=== PATIENT | female | born 1985 | race Two or more races ===

== ENCOUNTER 2024-01-29 23:30 | Emergency (ER) | payer MEDICAID, OTHER ==
[~2024-01-29] VITALS: Ht 170.2 cm; Wt 72.0 kg
[2024-01-30] VITALS: PULSE 111; RESP 16; O2SAT 99
[2024-01-30 00:09] LABS: Urine Bacteria None Seen /hpf (None Seen)
--- NOTE | 2024-01-30 00:13 | ED.PDOC ---
Psychiatric HPI Comments 38-year-old female who came to ER via EMS for overdose. Patient has history of anxiety and depression but is not taking any medications for it. Patient states she feels so stress recently, that she decided to harm herself by taking ibuprofen 200 mg x6, Advil p.m.x2, melatonin gummies 5 mg x2, earlier with a bot tle of wine in an attempt to harm herself. Denies being homicidal. Denies any hallucinations. Chief Complaint: Overdose Time Seen by MD: 00:12 Reviewed Notes: Photography Editor Notes Information Source: Patient Mode of Arrival: Ambulatory Severity: Unable to Care for Self, Unable to Control Self Severity of Pain: Moderate Severity of Mental Status: Moderate Severity of Symptoms: Moderate Timing: Hours Duration: Intermittent Presents with: Depression, Anxiety Attempt: Ingestion Ingestion: Intentional, Multiple, Ingestion Observed, Drug(s) Ingested (Ibuprofen, Advil, melatonin), ETOH Circumstance: Medical Clearance Current substance abuse: ETOH Stressors: Relationships Associated signs and symptoms: Depression, Hopeless, Anxiety, ETOH Past Medical History PAST MEDICAL HISTORY: Anxiety, Depression Surgical History: Denies all surgeries 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: Denies all 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 Hx Family History Family History: Reviewed,noncontributory to illness Social History Smoker: Non-Smoker Alcohol: Occasionally Drugs: Denies Drug Use Lives In: Home Constitutional: denies: chills, diaphoresis, fatigue, fever, malaise, sweats, weakness, others EENTM: denies: blurred vision, double vision, ear bleeding, ear discharge, ear drainage, ear pain, ear ringing, eye pain, eye redness, hearing loss, mouth pain, mouth swelling, nasal discharge, nose bleeding, nose congestion, nose pain, photophobia, tearing, throat pain, throat swelling, voice changes, others Respiratory: denies: cough, hemoptysis, orthopnea, SOB at rest, shortness of breath, SOB with excertion, stridor, wheezing, others Cardiovascular: denies: chest pain, dizzy spells, diaphoresis, Dyspnea on exertion, edema, irregular heart beat, left arm pain, lightheadedness, palpitations, PND, syncope, others Gastrointestinal: denies: abdomen distended, abdominal pain, blood streaked bowels, constipated, diarrhea, dysphagia, difficulty swallowing, hematemesis, melena, nausea, poor appetite, poor fluid intake, rectal bleeding, rectal pain, vomiting, others Genitourinary: denies: abnormal vagina bleeding, burning, dyspareunia, dysuria, flank pain, frequency, hematuria, incontinence, pain, , vagina discharge, urgency, others Neurological: denies: dizziness, fainting, headache, left sided numbness, left sided weakness, numbness, paresthesia, pre-existing deficit, right sided numbness, right sided weakness, seizure, speech problems, tingling, tremors, weakness, others Musculoskeletal: denies: back pain, gout, joint pain, joint swelling, muscle pain, muscle stiffness, neck pain, others Integumetry: denies: bruises, change in color, change in hair/nails, dryness, laceration, lesions, lumps, rash, wounds, others Allergic/Immunocompromised: denies: Difficulty Healing, Frequent Infections, Hives, Itching, others Hematologic/Lymphatic: denies: anemia, blood clots, easy bleeding, easy bruising, swollen glands, others Endocrine: denies: excessive hunger, excessive sweating, excessive thirst, excessive urination, flushing, intolerance to cold, intolerance to heat, unexplained weight gain, unexplained weight loss, others Psychiatric: reports: anxiety, depression, suicidal; denies: bipolar disorder, hopeless, panic disorder, schizophrenia, sleepless, others Physical Exam General Appearance: No Apparent Distress, Normal HEENT: Normal ENT Inspection, Pharynx Normal, TMs Normal Neck: Full Range of Motion, Non-Tender, Normal, Normal Inspection Respiratory: Chest Non-Tender, Lungs Clear, No Accessory Muscle Use, No Respiratory Distress, Normal Breath Sounds Cardiovascular: No Edema, No JVD, No Murmur, No Gallop, Normal Peripheral Pulses, Regular Rate/Rhythm Breast Exam: Deferred Gastrointestinal: No Organomegaly, Non Tender, No Pulsatile Mass, Normal Bowel Sounds, Soft Genitalia: Deferred Pelvic: Deferred Rectal: Deferred Extremities: No calf tenderness, Normal capillary refill, Normal inspection, Normal range of motion, Non-tender, No pedal edema Musculoskeletal : Apperance: Normal Neurologic: Alert, phlebotomist prn II-XII nml as Tested, No Motor Deficits, Normal Affect, Normal Mood, No Sensory Deficits Cerebellar Function: Normal Reflexes: Normal Skin: Dry, Normal Color, Warm Lymphatic: No Adenopathy Was a procedure done? Was a procedure done?: No Psych Differential Dx OD Differential Dx: Alcohol Abuse, Anxiety, Depression, Drug Overdose, Intentional, Personality Disorder, Schizophrenia, Suicidal Attempt X-Ray, Labs, Meds, VS Vital Signs Date Time Temp Pulse Resp B/P (MAP) Pulse Ox O2 Delivery O2 Flow Rate FiO2 01/30/24 04:00 89 15 94/55 (68) 95 01/30/24 03:00 91 15 106/71 (83) 95 01/30/24 02:00 99 9 100/73 (82) 95 01/30/24 01:00 97 17 109/79 (89) 96 01/30/24 00:00 111 16 111/71 (84) 99 01/30/24 00:00 111 16 99 Room Air* 0 21 01/29/24 23:58 112 111/71 (84) 01/29/24 23:41 98.4 134 18 148/87 (107) 100 01/29/24 23:39 124 Lab Test 01/30/24 00:26 01/30/24 00:12 01/30/24 00:03 Range/Units POC Glucose 154 H 70-106 mg/dl White Blood Count 5.2 4.4-10.8 10^3/uL Red Blood Count 4.08 4.0-5.20 10^6/uL Hemoglobin 13.6 12.2-16.2 g/dL Hematocrit 40.7 36.0-46.0 % Mean Corpuscular Volume 99.7 80.0-100.0 fL Mean Corpuscular Hemoglobin 33.4 H 28.0-32.0 pg Mean Corpuscular Hemoglobin Concent 33.5 32.0-36.0 g/dL Red Cell Distribution Width 14.2 11.8-14.3 % Platelet Count 339 140-450 10^3/uL Mean Platelet Volume 8.7 6.9-10.8 fL Neutrophils (%) (Auto) 70.0 37.0-80.0 % Lymphocytes (%) (Auto) 25.2 10.0-50.0 % Monocytes (%) (Auto) 4.0 0.0-12.0 % Eosinophils (%) (Auto) 0.4 0.0-7.0 % Basophils (%) (Auto) 0.4 0.0-2.0 % Neutrophils # (Auto) 3.6 1.6-8.6 10 ^3/uL Lymphocytes # (Auto) 1.3 0.4-5.4 10 ^3/uL Monocytes # (Auto) 0.2 0-1.3 10 ^3/uL Eosinophils # (Auto) 0 0-0.8 10 ^3/uL Basophils # (Auto) 0 0-0.2 10 ^3/uL Nucleated Red Blood Cells 0.2 % Sodium Level 141 136-145 mmol/L Potassium Level 2.7 L 3.5-5.1 mmol/L Chloride Level 109 H 98-107 mmol/L Carbon Dioxide Level 18 L 20-31 mmol/L Anion Gap 14 5-15 Blood Urea Nitrogen < 5 L 9-23 mg/dL Creatinine 0.84 0.550-1.02 mg/dL Glomerular Filtration Rate Calc 92 >90 mL/min BUN/Creatinine Ratio 6.0 L 10.0-20.0 Serum Glucose 179 H 74-106 mg/dL Calcium Level 9.9 8.7-10.4 mg/dL Salicylates Level < 3.0 -30 mg/dL Acetaminophen Level 4.0 L 10.0-20.0 UG/ML Plasma/Serum Blood Alcohol 246.6 H <10 mg/dL Urine Color Colorless Yellow Urine Clarity Clear Clear Urine pH 5.5 5.0-9.0 Urine Specific [place] 1.003 1.001-1.035 Urine Protein Negative Negative Urine Ketones Negative Negative Urine Blood Negative Negative /uL Urine Nitrite Negative Negative Urine Bilirubin Negative Negative Urine Urobilinogen Normal Negative mg/dL Urine Leukocyte Esterase Negative Negative /uL Urine RBC 1 0 - 4 /hpf Urine WBC 1 0 - 5 /hpf Urine Squamous Epithelial Cells Few <5 /hpf Urine Bacteria None seen None Seen /hpf Urine Glucose 3+ H Normal mg/dL Urine Test Negative Negative Urine Opiates Screen Neg NEGATIVE Urine Fentanyl Screen Neg NEGATIVE Urine Barbiturates Screen Neg NEGATIVE Urine Phencyclidine Screen Neg NEGATIVE Urine Amphetamines Screen Neg NEGATIVE Urine Benzodiazepines Screen Neg NEGATIVE Urine Cocaine Screen Neg NEGATIVE Urine Cannabinoids Screen Neg NEGATIVE Current Medications Medications (Trade) Dose Ordered Sig/Dot Route Start Time Stop Time Status Last Admin Potassium Bicarbonate (Klor-Con/Ef) 50 meq ONCE ONCE PO 01/30/24 02:00 01/30/24 02:02 DC 01/30/24 02:41 Time of 1ST Reevaluation: 00:07 Reevaluation 1ST: Unchanged Patient Education/Counseling: Diagnosis, Treatment Family Education/Counseling: No Family Present Departure 1 Departure Time of Disposition: 05:41 (Patient presenting with suicide ideation. Patient is medically cleared. Patient pending psychiatric evaluation) Impression: Primary Impression: Suicidal ideation Additional Impression: Alcohol intoxication Qualified Codes: F10.920 - Alcohol use, unspecified with intoxication, uncomplicated Disposition: 30 STILL A PATIENT Condition: Serious Critical Care Note Critical Care Time?: Yes Critical care comment: Suicidal ideation Authorized and Performed by: Del Glass MD Total critical care time: Approximately 44 minutes Due to a high probability of clinically significant, life threatening deterioration, the patient required my highest level of preparedness to intervene emergently and I personally spent this critical care time directly and personally managing the patient. This critical care time included obtaining a history; examining the patient; pulse oximetry; ordering and review of studies; arranging urgent treatment with development of a management plan; evaluation of patient's response to treatment; frequent reassessment; and, discussions with other providers. This critical care time was performed to assess and manage the high probability of imminent, life-threatening deterioration that could result in multi-organ failure. It was exclusive of separately billable procedures and treating other patients and teaching time. Please see my other sections and the rest of the note for further information on patient assessment and treatment. Stability Stability form required: No Heart Score Heart Score: Heart Score Response (Comments) Value History N/A 0 EKG N/A 0 Age N/A 0 Risk Factors N/A 0 Troponin N/A 0 Total 0 I personally scribed for DEL GLASS MD ([email or web address]) on 01/30/24 at 00:13. Electronically submitted by Dc Sprague ([email or web address]). DEL GLASS MD Jan 30, 2024 00:13
[2024-01-30 00:19] LABS: Urine Blood Negative /uL (Negative); Urine Clarity Clear (Clear); Urine Color Colorless (Yellow); Urine Protein, UAD Negative (Negative); Urine Specific Gravity 1.003 (1.001-1.035); Urine Urobilinogen Normal (Negative); Urine WBC 1 /hpf (0 - 5); Urine pH 5.5 (5.0-9.0)
[2024-01-30 00:32] LABS: Basophils # (auto) 0 10 ^3/uL (0-0.2); Basophils % (auto) 0.4 % (0.0-2.0); Eosinophils # (auto) 0 10 ^3/uL (0-0.8); Eosinophils % (auto) 0.4 % (0.0-7.0); Hematocrit 40.7 % (36.0-46.0); Hemoglobin 13.6 g/dL (12.2-16.2); Lymphocytes # (auto) 1.3 10 ^3/uL (0.4-5.4); Lymphocytes % (auto) 25.2 % (10.0-50.0); Mean Corpuscular Hemoglobin 33.4 pg (28.0-32.0); Mean Corpuscular Hgb Conc. 33.5 g/dL (32.0-36.0); Mean Corpuscular Volume 99.7 fL (80.0-100.0); Monocytes # (auto) 0.2 10 ^3/uL (0-1.3); Neutrophils # (auto) 3.6 10 ^3/uL (1.6-8.6); Nucleated Red Blood Cells % 0.2 %; Platelet Count (auto) 339 10^3/uL (140-450); Red Blood Cells 4.08 10^6/uL (4.0-5.20); Red Cell Distribution Width 14.2 % (11.8-14.3); White Blood Cell 5.2 10^3/uL (4.4-10.8)
[2024-01-30 00:34] LABS: Chloride 109 mmol/L (98-107); Potassium 2.7 mmol/L (3.5-5.1); Sodium 141 mmol/L (136-145)
[2024-01-30 00:35] LABS: Anion Gap 14 (5-15); Calcium 9.9 mg/dL (8.7-10.4); Carbon Dioxide 18 mmol/L (20-31)
[2024-01-30 00:40] LABS: Glucose 179 mg/dL (74-106)
[2024-01-30 00:44] LABS: Blood Urea Nitrogen < 5 mg/dL (9-23); Salicylate < 3.0 mg/dL (-30)
[2024-01-30 01:34] LABS: Amphetamine Screen, Urine Neg (NEGATIVE); Barbiturate Scree,Urine Neg (NEGATIVE); Benzodiazephine Screen, Urine Neg (NEGATIVE); Cocaine Screen, Urine Neg (NEGATIVE); Opiate Scree,Urine Neg (NEGATIVE)
[2024-01-30 01:35] LABS: Phencyclidine Screen, Urine Neg (NEGATIVE)
[2024-01-30 01:35] LABS: Blood Alcohol 246.6 mg/dL (<10)
[2024-01-30 01:48] LABS: Cannabinoid Screen, Urine Neg (NEGATIVE)
[2024-01-30] MEDS: POTASSIUM EFFERVESENT TAB 25 MEQ PO ONE (02:41)
[2024-01-30] MEDS: SODIUM CHLORIDE 0.9% 1,000 ML IVB ONE (09:18)
[2024-01-30 10:14] VITALS: BP 122/70; PULSE 70; RESP 16; O2SAT 97
[2024-01-30 11:00] LABS: Alanine Aminotransferase 17 U/L (7-40); Albumin 4.2 g/dL (3.2-4.8); Alkaline Phosphatase 49 U/L (46-116); Anion Gap 7 (5-15); Aspartate Aminotransferase 14 U/L (13-40); BUN/Creatinine Ratio 7.5 (10.0-20.0); Bilirubin, Total 0.5 mg/dL (0.2-1.0); Blood Urea Nitrogen 6 mg/dL (9-23); Calcium 9.4 mg/dL (8.7-10.4); Carbon Dioxide 26 mmol/L (20-31); Chloride 110 mmol/L (98-107); Glucose 94 mg/dL (74-106); Potassium 4.4 mmol/L (3.5-5.1); Sodium 143 mmol/L (136-145); Total Protein 6.9 g/dL (5.7-8.2)
--- NOTE | 2024-01-30 11:02 | DVHINCON2 ---
Date of Service if different f: Jan 30, 2024 Time of Service: 10:06 Consultation ([facility]) Consulting Physician: PEPE CARDENAS MD Progress: Better Labs Laboratory Tests Test 01/30/24 00:03 01/30/24 00:12 01/30/24 00:26 Urine Color Colorless (Yellow) Urine Clarity Clear (Clear) Urine pH 5.5 (5.0-9.0) Urine Specific [place] 1.003 (1.001-1.035) Urine Protein Negative (Negative) Urine Ketones Negative (Negative) Urine Blood Negative /uL (Negative) Urine Nitrite Negative (Negative) Urine Bilirubin Negative (Negative) Urine Urobilinogen Normal mg/dL (Negative) Urine Leukocyte Esterase Negative /uL (Negative) Urine RBC 1 /hpf (0 - 4) Urine WBC 1 /hpf (0 - 5) Urine Squamous Epithelial Cells Few /hpf (<5) Urine Bacteria None seen /hpf (None Seen) Urine Glucose 3+ mg/dL (Normal) Urine Test Negative (Negative) Urine Opiates Screen Neg (NEGATIVE) Urine Fentanyl Screen Neg (NEGATIVE) Urine Barbiturates Screen Neg (NEGATIVE) Urine Phencyclidine Screen Neg (NEGATIVE) Urine Amphetamines Screen Neg (NEGATIVE) Urine Benzodiazepines Screen Neg (NEGATIVE) Urine Cocaine Screen Neg (NEGATIVE) Urine Cannabinoids Screen Neg (NEGATIVE) White Blood Count 5.2 10^3/uL (4.4-10.8) Red Blood Count 4.08 10^6/uL (4.0-5.20) Hemoglobin 13.6 g/dL (12.2-16.2) Hematocrit 40.7 % (36.0-46.0) Mean Corpuscular Volume 99.7 fL (80.0-100.0) Mean Corpuscular Hemoglobin 33.4 pg (28.0-32.0) Mean Corpuscular Hemoglobin Concent 33.5 g/dL (32.0-36.0) Red Cell Distribution Width 14.2 % (11.8-14.3) Platelet Count 339 10^3/uL (140-450) Mean Platelet Volume 8.7 fL (6.9-10.8) Neutrophils (%) (Auto) 70.0 % (37.0-80.0) Lymphocytes (%) (Auto) 25.2 % (10.0-50.0) Monocytes (%) (Auto) 4.0 % (0.0-12.0) Eosinophils (%) (Auto) 0.4 % (0.0-7.0) Basophils (%) (Auto) 0.4 % (0.0-2.0) Neutrophils # (Auto) 3.6 10 ^3/uL (1.6-8.6) Lymphocytes # (Auto) 1.3 10 ^3/uL (0.4-5.4) Monocytes # (Auto) 0.2 10 ^3/uL (0-1.3) Eosinophils # (Auto) 0 10 ^3/uL (0-0.8) Basophils # (Auto) 0 10 ^3/uL (0-0.2) Nucleated Red Blood Cells 0.2 % Sodium Level 141 mmol/L (136-145) Potassium Level 2.7 mmol/L (3.5-5.1) Chloride Level 109 mmol/L (98-107) Carbon Dioxide Level 18 mmol/L (20-31) Anion Gap 14 (5-15) Blood Urea Nitrogen < 5 mg/dL (9-23) Creatinine 0.84 mg/dL (0.550-1.02) Glomerular Filtration Rate Calc 92 mL/min (>90) BUN/Creatinine Ratio 6.0 (10.0-20.0) Serum Glucose 179 mg/dL (74-106) Calcium Level 9.9 mg/dL (8.7-10.4) Salicylates Level < 3.0 mg/dL (-30) Acetaminophen Level 4.0 UG/ML (10.0-20.0) Plasma/Serum Blood Alcohol 246.6 mg/dL (<10) Bedside Glucose 154 mg/dl (70-106) Appetite: Good Side effects of medications: No Appearance: Stated age Behavioral: Cooperative Eye contact: Appropriate Speech: WNL, Slowed Affect: Appropriate Mood: Depressed Thought processes: Linear/Goal-directed Thought content: WNL Suicidal ideations: Absent Homicidal ideations: Absent Orientation: Person, Place, Time, Situation Memory intact: Short term Intellect: Average Abstractability: WNL Concentration: Adequate Attention: Adequate Judgement: Poor Insight: Limited Vitals Vital Signs Date Time Temp Pulse Resp B/P (MAP) Pulse Ox O2 Delivery O2 Flow Rate FiO2 01/30/24 08:14 98 16 110/65 (80) 95 01/30/24 00:00 Room Air* 0 21 01/29/24 23:41 98.4 Current medications Denies current psych meds. Treatment plan discussed: With staff Medication adjusted: No Labs ordered: No Psychotherapy provided: Yes Type: Involuntary Diagnosis: [place] I : F33.2, F10.20 [place] II : Borderline PD, predominantly codependent variety. [place] III : [place] IV : [place] V : Plan : Initiate 5150 and have pt admitted to inpatient psychiatric hospital for acute stabilization per standards of care and b/c the crisis situation at home has not changed. Pt remains a high risk for re-attempting suicide if she returns home or is discharged without inpatient psych treatment. History of Present Illness Reason for Consult : Overdose on meds in the context of alcohol use. Pt says she was having an issue with her daughter and the pt took an overdose of OTC pills. HPI : Pt says that she recently moved back in with the daughter's father and she and her daughter have not been getting along. The daughter wanted to go meet her boyfriend and was going to run away. Pt was trying to stop her, but she ran away anyway. Pt tried to find her, called the police who found her and brought her home. Pt drank a bottle of wine during the time she was waiting and also took a number of pills to overdose. Pt admits that in the moment she was suicidal and wanted to . Pt says she is in a relationship with a controlling narcissistic partner who doesn't allow her to use the internet features on her phone even. Pt has little access to psychiatric support and therapy and self medicates with alcohol when she feels afraid and angry. Pt has been diagnosed with depression, alcohol use disorder, was planning to start going to AA meetings. And Codependency. Past Psychiatric History : 2 IP stays, last was in July this year. Past Medical History : Denies. Social History : Lives with a partner and 2 daughters. 2 other daughters live with their father who is a different person. Assessment/Diagnosis/Plan Reviewed: Consults, Labs, Medications YUMIKO GAN MD Jan 30, 2024 11:02
[2024-01-30] MEDS ORDERED: PROP60CA34 PO (12:17)
--- NOTE | 2024-02-01 10:47 | ECG ---
[facility] Test Date: 2024-01-29 Test Time: 23:39:55 Pat Name: CHICO BLISS Department: ER Room: Gender: F Strain Technician: LAQUITA : 1985 Requested By: DEL SANCHEZ Order Number: [id number] Reading MD: Karl Castellano Measurements Intervals [place] Rate: 124 P: 72 VA: 176 QRS: 40 QRSD: 80 T: 268 QT: 339 QTc: 487 Interpretive Statements Sinus tachycardia Nonspecific T abnormalities, diffuse leads Borderline prolonged QT interval Electronically Signed On 02-04-2024 10:11:15 PST by Karl Castellano Please click the below link to view image of tracing.
== END 2024-01-30 12:41 | disposition home or self-care (01) ==
LOC: ER 23:30 → EDBD 23:30 → ER 01-30 12:41
DX: T39.312A Poisoning by propionic acid derivatives, intentional self-harm, initial encounter (principal); F10.129 Alcohol abuse with intoxication, unspecified; R45.851 Suicidal ideations; F41.9 Anxiety disorder, unspecified; F32.A Depression, unspecified; F60.3 Borderline personality disorder; R00.0 Tachycardia, unspecified; Z32.02 Encounter for pregnancy test, result negative; Z79.899 Other long term (current) drug therapy; Y90.8 Blood alcohol level of 240 mg/100 ml or more; Y92.9 Unspecified place or not applicable
CPT/HCPCS: 36415; 80048; 80053; 80307; 80320; 80329; 81001; 81025; 82962; 85025; 96360; 99291; J7030